=== PATIENT | female | born 1980 | race Hispanic/Latino ===

== ENCOUNTER 2017-08-20 05:47 | Day surgery (SDC) | payer OTHER ==
[2017-08-19 14:16] VITALS: BMI 42.2
[2017-08-20] MEDS ORDERED: Fentanyl 100 MCG/2 ML VIAL ONE ×2 (07:26→09:29)
[2017-08-20] MEDS ORDERED: Midazolam HCl 2 mg/2 ml Vial ONE (07:26)
[2017-08-20] MEDS ORDERED: Bupivacaine 0.25% HCL 30 ML VIAL ONE ×2 (07:40→19:53)
[2017-08-20] MEDS ORDERED: Dexamethasone 20 MG/5 ML VIAL ONE ×2 (08:20)
[2017-08-20] MEDS ORDERED: Ketorolac Tromethamine 30 MG/ML VIAL ONE ×2 (08:20)
[2017-08-20] MEDS ORDERED: Ondansetron HCl/PF 4 MG/2 ML Vial ONE ×2 (08:20)
[2017-08-20] MEDS ORDERED: Propofol 200 MG/20 ML VIAL ONE ×2 (08:20)
[2017-08-20] MEDS ORDERED: Lidocaine 1% PF 5 ML VIAL ONE ×2 (08:20)
[2017-08-20] MEDS ORDERED: Promethazine HCl 25 MG/ML VIAL ONE (11:27)
[2017-08-20] MEDS ORDERED: HYDROcodone/Acetaminophen 5/325 mg Tablet ONE ×2 (14:17)
[2017-08-20] MEDS ORDERED: Lidocaine 2% w/Epinephrine 1:200K 20 ML VIAL ONE (19:53)
--- NOTE | 2017-08-25 16:08 | PDOC.OP ---
Operative Note - Operative Note Operative Note: PROCEDURE: Right breast terminal ductal excision DATE OF PROCEDURE: 08/20/2017 SURGEON: Balwinder Mora M.D. [employer]: [facility] [place] MS 3 PREOPERATIVE DIAGNOSES: Bloody nipple discharge right breast POSTOPERATIVE DIAGNOSIS: Bloody nipple discharge right breast HISTORY: Patient is a 36-year-old woman with intermittent bloody nipple discharge from her right breast of several years duration. An outside ultrasound showed a possible intraductal lesion in the retroareolar region at 3: 00 but this could not be confirmed on repeat ultrasound here. Previously she had expressible discharge from a duct in the medial nipple but on the day of her operation she had no expressible discharge. Recommendation was made to remove the retroareolar terminal ductal tissue of the medial right breast. PROCEDURE IN DETAIL: After informed consent was obtained the patient was taken to the operating where she was placed in supine position and anesthesia was administered. She was prepped and draped in a standard sterile fashion. Another attempt was made to elicit the bloody nipple discharge but this was unsuccessful. Local anesthesia was infused the skin and subcutaneous tissues of the retroareolar area. A circumareolar incision was made along the medial edge of the areola and the terminal ductal tissue dissected up to the dermis of the nipple excising all of the retroareolar tissue from the medial breast and including the terminal 2-3 cm of ductal tissue from the central area and extending from 1:00 to 5:00 medial. The dermis of the nipple was closed with an absorbable suture. The specimen was removed and tagged for orientation. The wound was irrigated and hemostasis obtained using Bovie electrocautery. The subcutaneous tissues were reapproximated with 3-0 Monocryl sutures and additional local anesthesia infused circumferentially and into the biopsy cavity. The skin was closed with 4-0 Monocryl suture and Dermabond was applied. The patient tolerated the procedure well. Estimated blood loss was minimal. There were no complications. Specimen is right breast medial retroareolar tissue.
== END 2017-08-20 14:35 | disposition home or self-care (01) ==
LOC: SDC 05:47
PROVIDERS: ATTEND Surgery
PROC: 0HBT0ZX Excision of Right Breast, Open Approach, Diagnostic (ICD-10-PCS; principal; 2017-08-20)
DX: N61.0 Mastitis without abscess (principal); N64.89 Other specified disorders of breast; Z88.1 Allergy status to other antibiotic agents; Z98.51 Tubal ligation status; Z90.5 Acquired absence of kidney; Z98.890 Other specified postprocedural states
CPT/HCPCS: 88307; 96374; J1100; J1885; J2001; J2250; J2405; J2550; J2704; J3010; Q9968; S0020

== ENCOUNTER 2018-01-27 10:18 | Outpatient (CLI) | payer OTHER | END 2018-01-27 10:19 | disposition home or self-care (01) | LOC: BICULT 10:18 | PROVIDERS: ATTEND Family Medicine | DX: Z48.89 Encounter for other specified surgical aftercare (principal); Z98.890 Other specified postprocedural states ==

== ENCOUNTER 2018-09-14 13:18 | Outpatient (CLI) | payer OTHER ==
--- NOTE | 2018-09-14 14:32 | ULT ---
BILATERAL RENAL ULTRASOUND WITH GRAYSCALE AND DOPPLER COLORFLOW IMAGING: CLINICAL INDICATIONS: Chronic renal disease. COMPARISON: Reference made to 06/30/2017 exam. FINDINGS: The patient is status post right nephrectomy. There is no hydronephrosis of the left kidney. Docume nted left renal length is 12.7 cm, indicating compensatory hypertrophy. The urinary bladder is unrem arkable. IMPRESSION: 1. Status post right nephrectomy. 2. Compensatory hypertrophy of the left kidney without acute left renal pathology. POS: FINA
== END 2018-09-14 13:19 | disposition home or self-care (01) ==
LOC: ULT 13:18
PROVIDERS: ATTEND Family Medicine
DX: N18.2 Chronic kidney disease, stage 2 (mild) (principal); Z90.5 Acquired absence of kidney; N28.81 Hypertrophy of kidney
CPT/HCPCS: 76770

== ENCOUNTER 2019-10-19 09:13 | Outpatient (CLI) | payer OTHER ==
--- NOTE | 2019-10-19 09:49 | CT ---
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 Coronal reformatted imaging obtained. FINDINGS: Lack of contrast media limits assessment of the viscera, bowel, vascular structures, and fo r lymphadenopathy. Imaged lung bases unremarkable. No free intraperitoneal air or fluid. Liver, gallbladder, spleen, mei creas, and adrenal glands appear grossly unremarkable. Right kidney is absent. No nephrolithiasis or evidence of obstructive uropathy noted on the left. Limited assessment of the bowel appears grossly unremarkable. There is lower lumbar spine degenerative change at the lumbosacral junction including disc space narr owing with degenerative endplate change and vacuum disc formation as well as bilateral facet hypertrophy causing prominent bilateral neural foraminal stenosis. No acute osseous abnormality. IMPRESSION: Status post nephrectomy on the right. No evidence for obstructive uropathy or nephrolithi asis on the left..
== END 2019-10-19 09:14 | disposition home or self-care (01) ==
LOC: BICCT 09:13
PROVIDERS: ATTEND Family Medicine
DX: N20.0 Calculus of kidney (principal); Z90.5 Acquired absence of kidney
CPT/HCPCS: 74176